=== PATIENT | male | born 1985 | race American Indian/Alaskan Native ===

== ENCOUNTER 2017-01-09 20:00 | Emergency (ER) | payer OTHER ==
--- NOTE | 2017-01-10 02:17 | Emergency Department Report ---
Chief Complaint: Anxiety Stated Complaint: ANXIETY Time Seen by Provider: 01/10/17 01:56 - HPI History of Present Illness: Patient here with family members who brought him to the hospital and reported that they went to [facility] for patient to be seen. Family reports that [facility] told them that since patient does not have any insurance he cannot be admitted he has to go to the hospital and be evaluated by mental health and be medically cleared and if they feel like he needs to come to [facility] then hospital will send him to [facility]. Patient has a history of anxiety and depression and family member also report patient is a history of schizophrenia but he doesn't have any insurance and does not have a doctor. They report that patient has been having increased anxiety and is taking vitamin B12 complex but he is having some worsening anxiety. Patient denies homicidal or suicidal thoughts. He reports that he would like some help for insect his anxiety. He said he talked the guard but he does not hear any voices or seeing anything. Denies any pain. - ROS Review of Systems: All systems are negative unless stated in HPI above - Exam Vital Signs: Vital Signs 01/09/17 20:19 Temperature 98.8 F Pulse Rate 79 Respiratory 18 Rate Blood Pressure 136/81 O2 Sat by Pulse 100 Oximetry Physical Exam: This is a 31-year-old male well-nourished well-developed in no acute distress and nontoxic in appearance. Psych: Denies suicide or homicide ideation. Denies any hallucination. Reports anxiety. MSE screening note: Focused history and physical exam performed. Due to findings the following was ordered: Patient discussed with doctor:: RELL MCKEE ED Medical Decision Making - Medical Decision Making Medical decision making: Patient screened by provider. Mental health consulted to see patient. Medical clearance labs ordered.. Patient on arrival to mental health room 16. ED Disposition for MSE Condition: Stable Referrals: PRIMARY CARE, [Primary Care Provider] - 3-5 Days
[2017-01-10 02:34] LABS: Basophils % (Auto) 0.7 % (0.0-1.8); Eosinophils % (Auto) 0.6 % (0.0-4.3); Hematocrit 42.6 % (35.5-45.6); Hemoglobin 13.7 gm/dl (11.8-15.2); Mean Corpuscular HGB Conc 32 % (32-34); Mean Corpuscular Hemoglobin 27 pg (28-32); Mean Corpuscular Volume 84 fl (84-94); Platelet Count 248 K/mm3 (140-440); Red Blood Count 5.06 M/mm3 (3.65-5.03); Red Cell Distribution Width 14.1 % (13.2-15.2); White Blood Count 6.4 K/mm3 (4.5-11.0)
[2017-01-10 02:47] LABS: Anion Gap 17 mmol/L; Blood Urea Nitrogen 11 mg/dL (9-20); Calcium 9.2 mg/dL (8.4-10.2); Carbon Dioxide 26 mmol/L (22-30); Chloride 97.3 mmol/L (98-107); Glucose 131 mg/dL (75-100); Potassium 3.6 mmol/L (3.6-5.0); Sodium 137 mmol/L (137-145)
--- NOTE | 2017-01-10 03:57 | Emergency Department Report ---
ED Psych HPI - General Chief Complaint: Medical Clearance Stated Complaint: ANXIETY Time Seen by Provider: 01/10/17 01:56 Source: patient Mode of arrival: Ambulatory - History of Present Illness Initial Comments: Patient is a 31-year-old male with a history of schizophrenia and bipolar presenting to the ER with his parents for medical clearance. As per parents the patient has been on a downward decline over the last year and more recently patient has displayed signs of ozzy and psychosis. Patient has been talking about "dalia" and has hearing voices specifically God. Two weeks ago patient was found in [place] after being missing for 8 days. It was discovered he walked and hitch hiked to [place] for "a calling". Parents also report patient does not sleep and his personal hygiene is non existent. Pt has been at [facility] in the past but they cannot recall what medication he has been on. Otherwise patient denies any fevers, chills, JARA, NVD, SOB, CP, Abd pain, extremity pains, or sick contacts. MD Complaint: other (psychotic) - Related Data Allergies Allergy/AdvReac Type Severity Reaction Status Date / Time methylphenidate HCl Allergy Unknown Verified 01/09/17 20:17 [From Ritalin] risperidone [From Risperdal] Allergy Unknown Verified 01/09/17 20:17 ED Review of Systems ROS: Stated complaint: ANXIETY Other details as noted in HPI Comment: Unobtainable due to pts medical conditions ED Past Medical Hx - Past Medical History Previous Medical History?: Yes Hx Psychiatric Treatment: Yes (anxiety) - Surgical History Past Surgical History?: Yes Additional Surgical History: left wrist - Social History Smoking Status: Current Every Day Smoker Substance Use Type: None ED Physical Exam - General Limitations: No Limitations General appearance: alert, in no apparent distress - Head Head exam: Present: atraumatic, normocephalic - Eye Eye exam: Present: normal appearance - ENT ENT exam: Present: mucous membranes moist - Neck Neck exam: Present: normal inspection - Respiratory Respiratory exam: Present: normal lung sounds bilaterally. Absent: respiratory distress - Cardiovascular Cardiovascular Exam: Present: regular rate, normal rhythm. Absent: systolic murmur, diastolic murmur, rubs, gallop - GI/Abdominal GI/Abdominal exam: Present: soft, normal bowel sounds - Rectal Rectal exam: Present: deferred - Extremities Exam Extremities exam: Present: normal inspection - Back Exam Back exam: Present: normal inspection - Neurological Exam Neurological exam: Present: alert, oriented X3 - Psychiatric Psychiatric exam: Present: anxious, flat affect, other (Psychotic, patient lacks insight, incoherent thoughts). Absent: homicidal ideation, suicidal ideation - Skin Skin exam: Present: warm, dry, intact, normal color. Absent: rash ED Course Vital Signs 01/09/17 01/10/17 01/10/17 20:19 06:01 07:59 Temperature 98.8 F 98 F 98.4 F Pulse Rate 79 76 85 Respiratory 18 18 20 Rate Blood Pressure 136/81 Blood Pressure 147/91 154/90 [Left] O2 Sat by Pulse 100 98 Oximetry 01/10/17 01/11/17 01/11/17 19:30 05:16 07:49 Temperature 98 F 98 F 98.1 F Pulse Rate 90 87 82 Respiratory 18 18 20 Rate Blood Pressure Blood Pressure 151/83 132/87 130/86 [Left] O2 Sat by Pulse 99 99 100 Oximetry ED Medical Decision Making - Lab Data Result diagrams: 01/10/17 02:24 01/10/17 02:24 - Medical Decision Making Psych consult appreciated Pt to be kept 1013, started on risperdal and depakote, admitted to inpatient psych service Critical care attestation.: If time is entered above; I have spent that time in minutes in the direct care of this critically ill patient, excluding procedure time. ED Disposition Clinical Impression: Psychotic disorder, Bipolar 1 disorder, manic, moderate, Schizoaffective disorder Disposition: OP ADMITTED IP TO THIS HOSP Is pt being admited?: Yes Condition: Stable
--- NOTE | 2017-01-10 16:55 | Consultation ---
History of Present Illness - Reason for Consult Consult date: 01/10/17 Reason for consult: Mental Health Evaluation Requesting physician: ALYCE UMAÑA - Chief Complaint Chief complaint: "I am a child of God" - History of Present Psychiatric Illness Patient is a 31-year-old male with a history of schizophrenia and bipolar presenting to the ER with his parents for medical clearance. Per his parents the patient has been on a downward decline over the last year and more recently patient has displayed signs of ozzy and psychosis. Today patient is calm and cooperative, but with a disheveled appearance. He stated that he is on a journey for "God." Patient stated that he do what God tells him, because God justifies everything. Per his dad George Davila, patient have not taken a bath in 2 days. The patient stated that he will eat only if God tell him. The patient stated that he walked from [place] to [place] most recently. He stated that God told him to walk to [place], this was confirmed by his father. Patient takes vitamin pills for his mental illness (anxiety). His father stated that his son has a hx of Schizophrenia and Bipolar, the patient stated his issue is anxiety. He denies SI/HI's, AVH's, a poor appetite, but stated not sleeping the past 4 days. He denies alcohol consumption (etoh), but smoke marijuana "sometimes." Medications and Allergies Allergies Allergy/AdvReac Type Severity Reaction Status Date / Time methylphenidate HCl Allergy Unknown Verified 01/09/17 20:17 [From Ritalin] risperidone [From Risperdal] Allergy Unknown Verified 01/09/17 20:17 Mental Status Exam - Vital signs Last Vital Signs Temp 98.4 F 01/10/17 07:59 Pulse 85 01/10/17 07:59 Resp 20 01/10/17 07:59 BP 154/90 01/10/17 07:59 Pulse Ox 98 01/10/17 07:59 - Exam Narrative exam: ROS (+) manic MSE: Appearance: calm, cooperative, disheveled Behavior: good eye contact Speech: regular rate and tone Mood: "okay" Affect: flat Thought Process: linear "about about his journey" Thought Content: denies SI/HI's and VH's, delusional Motor Activity: ambulatory Cognition: a/ox 3 Insight: limited Judgment: limited Results Result Diagrams: 01/10/17 02:24 01/10/17 02:24 Abnormal lab results 01/10/17 01/10/17 Range/Units 02:24 02:24 RBC 5.06 H (3.65-5.03) M/mm3 MCH 27 L (28-32) pg Lymph % (Auto) 38.9 H (13.4-35.0) % Baker % (Auto) 10.9 H (0.0-7.3) % Chloride 97.3 L (98-107) mmol/L Glucose 131 H (75-100) mg/dL All other labs normal. Assessment and Plan Assessment and plan: Impression: Unspecified Mood DO with psychotic features. Patient is a 31-year- old male with a history of schizophrenia and bipolar presenting to the ER with his parents for medical clearance. Per his parents the patient has been on a downward decline over the last year and more recently patient has displayed signs of ozzy and psychosis. today patient is calm and cooperative, but with a disheveled appearance. He stated that he is on a journey for "God." Patient stated that he do what God tells him, because God justifies everything. He denies SI/HI's and AVH's. DD: R/O Bipalr, Schizoaffective DO. Recommendation/Plan: Continue 1013 with placement to inpatient psy services. Start Risperdal and loading dose of Depakote tomorrow. Patient is candidate for long acting antipsychotic (Invega Sustenna). Start Benadryl 50 mg PO HS for sleep.
[2017-01-10 17:47] LABS: Urine Drugs of Abuse Note Disclamer
[2017-01-10 18:00] LABS: Bilirubin,Urine NEG (Negative); Blood,Urine NEG (Negative); Ketones,Urine TR mg/dL (Negative); Leukocyte Esterase,Urine NEG (Negative); Mucus,Urine 3+ /HPF; Nitrite,Urine NEG (Negative); Urobilinogen,Urine < 2.0 mg/dL (<2.0)
[2017-01-10] MEDS: BENADRYL PO SCH (22:48)
--- NOTE | 2017-01-11 12:48 | Progress Note ---
Subjective - Reason for Consult Consult date: 01/11/17 Reason for consult: psych follow up - Chief Complaint Chief complaint: "I feel better" 31 jarod old black male seen for psychiatric follow up. He presented with hyperreligious delusions. He states the racing thoughts have calmed down and is feeling better compared to yesterday. He reports panic attacks but is not focused on sabianism or overtly expressing delusional thought content. Mental Status Exam - Vital signs Last Vital Signs Temp 98.1 F 01/11/17 07:49 Pulse 82 01/11/17 07:49 Resp 20 01/11/17 07:49 BP 130/86 01/11/17 07:49 Pulse Ox 100 01/11/17 07:49 - Exam Orientation: time, place, person Affect: anxious Mood: congruent with affect Thought content: delusions, paranoia (acknowledges), sabianism (denies) Thought Process: Tangential Perceptions: other Speech: pressured Concentration: distractible Motor activity: normal Level of consciousness: alert Memory: Intact Interaction: cooperative Assessment and Plan Impression: Psychosis/ozzy. Non compliant with medications and decline in daily functioning. Requires inpatient treatment. Recommendation: Geodon 20mg po ordered qpm with a meal for psychotic symptoms. He is allergic to risperidone. Depakote ER 1000mg ordered hs for loading dose for ozzy. 1013 and transfer to in psych facility.
[2017-01-11] MEDS: BENADRYL PO SCH (23:40)
[2017-01-11] MEDS: GEODON PO SCH (23:40)
[2017-01-12 08:44] LABS: Alanine Aminotransferase 10 units/L (7-56); Alkaline Phosphatase 48 units/L (35-129)
--- NOTE | 2017-01-12 09:26 | Progress Note ---
Subjective - Reason for Consult Consult date: 01/12/17 Reason for consult: Psychiatry Follow-up - Chief Complaint Chief complaint: "I am okay" 31 year old black male seen for psychiatric mental health evaluation. Today patient still have hyper hindu content (delusions) stating that he does everything for "God." He stated between the ages of 1 to 7, he was "good." After the age 7, he cannot say what caused him to "transform" to the person he is today. He stated that now he's in the process of "cleansing" his body so he can be a better person for "God." He rate his mood 0/10, with 10 being the worse , but feels unhappy at times. He could not explain why he feels unhappy. He denies SI/HI, AVH's, or sleep disturbance. Patient seem lethargic during our conversation. He denies racing thoughts at this time. Mental Status Exam - Vital signs Last Vital Signs Temp 98.1 F 01/11/17 07:49 Pulse 82 01/11/17 07:49 Resp 20 01/11/17 07:49 BP 130/86 01/11/17 07:49 Pulse Ox 100 01/11/17 07:49 - Exam Narrative exam: MSE: Appearance: calm, cooperative Behavior: good eye contact Speech: regular rate and tone Mood: "okay" Affect: flat Thought Process: linear "it's about God" Thought Content: denies SI/HI's and VH's Motor Activity: ambulatory Cognition: a/ox 3 Insight: limited Judgment: limited Assessment and Plan Impression: 31 year old black male seen for psychiatric mental health evaluation. Today patient still have hyper hindu content (delusions) stating that he does everything for "God." He stated between the ages of 1 to 7 , he was "good." After the age 7, he cannot say what caused him to "transform" to the person he is today. He stated that now he's in the process of "cleansing " his body so he can be a better person for "God." Collateral Information: Patient lives with his parents. His mother number is (Karen Rojas). Recommendation/Plan: Continue 1013 with placement to inpatient psy services. Continue Geodon 20 mg PO ordered qpm with a meal for psychotic symptoms. Change Depakote to 500 mg BID for mood/ozzy. Modify Benadryl to 25 mg PO HS PRN for sleep.
[2017-01-12] MEDS: GEODON PO SCH (18:55)
[2017-01-12] MEDS ORDERED: BENADRYL PO PRN (22:00)
--- NOTE | 2017-01-13 08:39 | Progress Note ---
Subjective - Reason for Consult Consult date: 01/13/17 Reason for consult: Psychiatry Follow-up - Chief Complaint Chief complaint: "I'm not sure how I feel" 31 year old black male seen for psychiatric mental health evaluation. Today patient still have hyper jain content (delusions) stating that he does everything for "God." His mother came yesterday to visit and he stated that it didn't go well. He states that his mother have no idea who he is at this time. He stated she increases his anxiety so he would like for her not to visit him anymore along with his dad. He stated that he would like to eat, but don't have an appetite at this time. He denies SI/HI's, AVH's, or sleep disturbance. He denies racing thoughts. Patient was drowsy during our conversation. Mental Status Exam - Vital signs Last Vital Signs Temp 98 F 01/12/17 20:05 Pulse 100 H 01/12/17 20:05 Resp 18 01/12/17 20:05 BP 142/84 01/12/17 20:05 Pulse Ox 100 01/12/17 20:05 - Exam Narrative exam: MSE: Appearance: calm, cooperative Behavior: good eye contact Speech: regular rate and tone Mood: "I am fine" Affect: flat Thought Process: linear "it's about God" Thought Content: denies SI/HI's and VH's Motor Activity: ambulatory Cognition: a/ox 3 Insight: limited Judgment: limited Assessment and Plan Impression: 31 year old black male seen for psychiatric mental health evaluation. Today patient still have hyper jain content (delusions) stating that he does everything for "God." His mother came yesterday to visit and he stated that it didn't go well. He stated that his mother have no idea who he is at this time. Collateral Information: Patient lives with his parents. His mother number is (Karen Rojas). Recommendation/Plan: Pending [facility] transport time. Start Zyprexa Zydis 5 mg PO HS for psychotic psychotic symptoms and Cogentin 0.5 mg PO HS for EPS prevention. Continue Depakote to 500 mg BID for mood/ozzy and Benadryl to 25 mg PO HS PRN for sleep.
[2017-01-13 10:15] VITALS: BP 149/79
[2017-01-13] MEDS ORDERED: COGENTIN PO SCH (22:00)
== END 2017-01-13 11:12 | disposition admitted as inpatient to this hospital (09) ==
LOC: ED 20:00 → EEVIPCON 20:00 → ED 01-13 11:12
DX: F29 Unspecified psychosis not due to a substance or known physiological condition (principal); F31.9 Bipolar disorder, unspecified; F25.9 Schizoaffective disorder, unspecified; F17.200 Nicotine dependence, unspecified, uncomplicated
CPT/HCPCS: 36415; 80048; 80307; 81001; 84075; 84450; 84460; 85025; 99285; G0480; 80320

== ENCOUNTER 2018-09-15 10:11 | Emergency (ER) | payer SELFPAY ==
[2018-09-15 10:17] VITALS: BP 157/89
[2018-09-15] MEDS ORDERED: NACL 0.9% 1000 ML 1,000 ML IV ONE (10:40)
--- NOTE | 2018-09-15 10:40 | Emergency Department Report ---
ED General Adult HPI - General Chief complaint: Abdominal Pain Stated complaint: STOMACH PAIN/CANT SLEEP Time Seen by Provider: 09/15/18 10:22 Source: patient Mode of arrival: Ambulatory Limitations: No Limitations - History of Present Illness Initial comments: Mr. Davila is a very pleasant 32-year-old male with history of schizophrenia and bipolar affective disorder. He takes Depakote and Risperdal. He is followed at the [facility]. He receives financial disability assitance. He receives $1500/month. However, he is unable to afford health insurance. For several months he has felt movement throughout his body mosty chest abdomen and lower legs. He feels as if he has parasites. He was evaluated today at [facility]. He had nausea vomiting. He just feels movement throughout his body. He denies any pain at this time. However he does have a history of GI discomfort. He denies hallucinations, suicidal homicidal ideation. He denies use of recreational drugs. Gradual onset of symptoms several months ago but worse over the last few days. -: Gradual, month(s) (several) Location: chest, abdomen, lower extremity Quality: other (feeling an object moving over his body) Consistency: intermittent Improves with: other (essential oils) - Related Data Allergies Allergy/AdvReac Type Severity Reaction Status Date / Time methylphenidate HCl Allergy Unknown Verified 09/15/18 10:12 [From Ritalin] risperidone [From Risperdal] Allergy Unknown Verified 09/15/18 10:12 ED Review of Systems ROS: Stated complaint: STOMACH PAIN/CANT SLEEP Other details as noted in HPI Comment: All other systems reviewed and negative Constitutional: denies: fever, malaise Respiratory: denies: cough Cardiovascular: denies: chest pain Gastrointestinal: abdominal pain, nausea, vomiting ED Past Medical Hx - Past Medical History Previous Medical History?: Yes Hx Psychiatric Treatment: Yes (anxiety) Additional medical history: Bipolar affective disorder, schizophrenia - Surgical History Past Surgical History?: Yes Additional Surgical History: left wrist - Social History Smoking Status: Never Smoker Substance Use Type: None ED Physical Exam - General Limitations: No Limitations General appearance: alert, in no apparent distress - Head Head exam: Present: atraumatic, normocephalic - Eye Eye exam: Present: normal appearance - ENT ENT exam: Present: mucous membranes moist - Neck Neck exam: Present: normal inspection. Absent: tenderness, meningismus - Respiratory Respiratory exam: Present: normal lung sounds bilaterally. Absent: respiratory distress, wheezes, rales, rhonchi - Cardiovascular Cardiovascular Exam: Present: regular rate, normal rhythm, normal heart sounds. Absent: systolic murmur, diastolic murmur, rubs, gallop - GI/Abdominal GI/Abdominal exam: Present: soft, normal bowel sounds. Absent: distended, tenderness, guarding, rebound - Rectal Rectal exam: Present: deferred - Extremities Exam Extremities exam: Present: normal inspection - Back Exam Back exam: Present: normal inspection - Neurological Exam Neurological exam: Present: alert, oriented X3, normal gait - Psychiatric Psychiatric exam: Present: normal affect, normal mood, other (calm insightful cooperative) - Skin Skin exam: Present: warm, dry, intact, normal color. Absent: rash ED Course Vital Signs 09/15/18 10:12 Temperature 98.5 F Pulse Rate 117 H Respiratory 18 Rate Blood Pressure 157/89 O2 Sat by Pulse 100 Oximetry ED Medical Decision Making - Lab Data Result diagrams: 09/15/18 11:02 09/15/18 11:02 - Medical Decision Making Mr. Davila presents wiht abnormal tactile sensation, concern for parasites, unclear if tactile hallucinations or medical condition. No indication of acute medical process with extensive work up including serum/urine studies, CT chest/abdomen/pelvis. Concern for medication noncompliance. Depakote level is undectable. Normal labs. Normal CT chest/abdomen/pelvis. Mr. Davila is calm and cooperative. He does not appear to be a harm to himself or others. He plans to f/u at [facility] for further evaluation. He insists that he is that is medication in spite negative depakote level. Critical care attestation.: If time is entered above; I have spent that time in minutes in the direct care of this critically ill patient, excluding procedure time. ED Disposition Clinical Impression: Sensory disturbance Disposition: DC-01 TO HOME OR SELFCARE Is pt being admited?: No Does the pt Need Aspirin: No Condition: Stable Instructions: Paresthesia (ED) Referrals: [facility] [Outside] - 3-5 Days
[2018-09-15 11:18] LABS: Basophils # (Auto) 0.1 K/mm3 (0.0-0.1); Basophils % (Auto) 0.9 % (0.0-1.8); Eosinophils % (Auto) 0.4 % (0.0-4.3); Hematocrit 44.1 % (35.5-45.6); Hemoglobin 14.4 gm/dl (11.8-15.2); Lymphocytes # (Auto) 1.7 K/mm3 (1.2-5.4); Lymphocytes % (Auto) 28.4 % (13.4-35.0); Mean Corpuscular HGB Conc 33 % (32-34); Mean Corpuscular Volume 85 fl (84-94); Monocytes # (Auto) 0.4 K/mm3 (0.0-0.8); Monocytes % (Auto) 7.2 % (0.0-7.3); Platelet Count 305 K/mm3 (140-440); Red Blood Count 5.22 M/mm3 (3.65-5.03); Red Cell Distribution Width 14.8 % (13.2-15.2)
[2018-09-15 11:33] LABS: Amphetamine Screen,Urine PRESUMPTIVE NEGATIVE; Benzodiazepines Screen,Urine PRESUMPTIVE NEGATIVE; Cannabinoid Screen,Urine PRESUMPTIVE NEGATIVE; Cocaine Screen,Urine PRESUMPTIVE NEGATIVE; Methadone Screen,Urine PRESUMPTIVE NEGATIVE; Opiate Screen,Urine PRESUMPTIVE NEGATIVE
[2018-09-15 11:36] LABS: Bilirubin,Urine NEG (Negative); Blood,Urine NEG (Negative); Color,Urine Yellow (Yellow); Mucus,Urine FEW /HPF; Protein,Urine <15 mg/dL mg/dL (Negative); Urobilinogen,Urine < 2.0 mg/dL (<2.0)
[2018-09-15 11:40] LABS: Alanine Aminotransferase 12 units/L (7-56); Albumin 4.3 g/dL (3.9-5); BUN/Creatinine Ratio 4; Blood Urea Nitrogen 5 mg/dL (9-20); Calcium 9.3 mg/dL (8.4-10.2); Hemolysis Index 4
--- NOTE | 2018-09-15 13:27 | Cat Scan Report ---
FINAL REPORT PROCEDURE: CT CHEST W CON CT CHEST, abdomen, pelvis w CON TECHNIQUE: Computerized axial tomography of the chest, abdomen, and pelvis after the IV injection of iodinated nonionic contrast was performed. Computerized axial tomography of the chest, abdomen, pelvis was performed during the IV injection of iodinated nonionic contrast. HISTORY: chest irritation COMPARISON: No prior studies are available for comparison. FINDINGS: Heart and pericardium: Normal. Thoracic aorta: Normal. Pulmonary vasculature: Normal. Mediastinum: No enlarged thoracic lymph nodes. Lungs: Normal. Pleural space: No effusion, thickening, or pneumothorax. Liver: Normal size and attenuation. Spleen: Normal size and attenuation. Gallbladder and biliary system: Normal. Pancreas: Normal. Adrenals: Normal. Kidneys: Normal. GI tract: Appendix is normal in appearance. Moderate volume of stool is seen throughout the colon. No bowel obstruction or inflammation Lymph nodes and mesentery: Normal. Vasculature: Normal. Bladder: Normal. Reproductive organs: Normal. Peritoneum: No free fluid Musculoskeletal structures: Mild degenerative disc changes at T11-12 Other: None. IMPRESSION: Unremarkable exam
== END 2018-09-15 13:40 | disposition home or self-care (01) ==
LOC: ED 10:11
DX: R20.9 Unspecified disturbances of skin sensation (principal); F31.9 Bipolar disorder, unspecified; F20.9 Schizophrenia, unspecified; F41.9 Anxiety disorder, unspecified; Z88.8 Allergy status to other drugs, medicaments and biological substances
CPT/HCPCS: 36415; 71260; 74177; 80053; 80164; 80307; 81001; 82550; 84443; 85025; 96360; 99284; G0480; J7030; Q9967; 80320